=== PATIENT | female | born 1990 | race Two or more races ===

== ENCOUNTER 2024-10-05 00:50 | Emergency (ER) | payer MEDICAID, SELFPAY ==
[2024-10-05 00:51] VITALS: BMI 30.9
[2024-10-05 01:03] VITALS: BP 144/85; PULSE 74; RESP 16; TEMP 36.8; O2SAT 100
[2024-10-05] MEDS: ONDANSETRON ODT 4 MG TABRAP PO (01:18)
--- NOTE | 2024-10-05 01:19 | EDNOTE_ITS ---
ED Abdominal Pain RME/HPI General Chief Complaint: Abdominal Pain Stated complaint: BURNING SENSATION IN STOMACH Time seen by provider: 10/05/24 01:04 Arrival date/time: 10/05/24 00:50 34F with history of KIKI presents to ED with 1 year of intermittent burning epigastric pain and N/V. Tonight's flare is just worse than usual. Patient states she only recently started going to her PCP and has pending outpatient labs. Limitations: no limitations Related Data Previous Rx's ?Medication ?Instructions ?Recorded hydrocodone 5 mg-acetaminophen 325 1 tab PO Q8H PRN pa in #10 tabs 10/05/24 mg tablet ondansetron 4 mg disintegrating 4 mg PO Q6H PRN nausea and 10/05/24 tablet vomiting #10 tabs Allergies Allergy/AdvReac Type Severity Reaction Status Date / Time No Known Allergies Allergy Verified 10/05/24 00:53 Review of Systems Review of Systems Systems Reviewed: All systems reviewed, normal except as documented Constitutional Constitutional: Reports system reviewed and no additional complaints, except as documented, Denies fever(s) and Denies headache(s) ENT Ears, Nose, Mouth, and Throat: Denies disequilibrium and Denies headache(s) Cardiovascular Cardiovascular: Reports system reviewed and no additional complaints, except as documented, Denies chest pain and Denies dyspnea Respiratory Respiratory: Reports system reviewed and no additional complaints, except as documented, Denies cough and Denies dyspnea Gastrointestinal Gastrointestinal: Reports system reviewed and no additional complaints, except as documented, Reports as per HPI, Reports abdominal pain, Reports nausea and Reports vomiting Neurologic Neurologic: Reports system reviewed and no additional complaints, except as documented, Denies confusion, Denies disequilibrium and Denies headache(s) Psychiatric Psychiatric: Denies confusion Past Medical History Social History SMOKING STATUS: Never smoker ED Exam General Limitations: Present no limitations General appearance: Present alert and in no apparent distress Head Head exam: Present atraumatic Eye Eye exam: Present normal appearance, PERRL and EOMI ENT ENT exam: Present normal exam, normal oropharynx and mucous membranes moist Neck Neck exam: Present normal inspection, full ROM and trachea midline Chest Chest inspection: Present normal inspection and symmetric chest wall rise Respiratory Respiratory exam: Present normal lung sounds bilaterally Cardiovascular Cardiovascular exam: Present regular rate, normal rhythm and normal heart sounds Abdominal Exam Abdominal exam: Present soft and normal bowel sounds Extremities Exam Extremities exam: Present normal inspection and full ROM Back Exam Back exam: Present normal inspection and full ROM Neurological Exam Neurological exam: Present alert, oriented X3 and CN II-XII intact Psychiatric Psychiatric exam: Present normal affect and normal mood Skin Skin exam: Present warm, dry, intact and normal color Course Quality Measures none Orders Category Date Time Status CT Screening NOW Care 10/05/24 04:53 Completed Insert IV NOW Care 10/05/24 04:[address] abdomen pelvis w con Stat Exams 10/05/24 04:52 Completed US gall bladder Stat Exams 10/05/24 02:46 Completed CBC Stat Lab 10/05/24 03:06 Completed CMP [Comprehensive Metabolic Panel] Stat Lab 10/05/24 03:06 Completed CMP [Comprehensive Metabolic Panel] Stat Lab 10/05/24 06:00 Completed Drug Screen,Urine Stat Lab 10/05/24 03:54 Completed HCG Qualitative,Urine Stat Lab 10/05/24 03:54 Completed Lipase Stat Lab 10/05/24 03:06 Completed Famotidine [Pepcid] Med 10/05/24 01:12 Discontinued 40 mg PO X1 ONE HYDROcodone*/APAP 5/325 [Floyd 5/325] Med 10/05/24 04:02 Discontinued 1 tab PO X1 ONE Lidocaine 2% Viscous [Xylocaine 2% Viscous] Med 10/05/24 02:46 Discontinued 15 ml PO X1 ONE Ondansetron Odt [Zofran Odt] Med 10/05/24 01:12 Discontinued 4 mg PO X1 ONE mg Hyd/Al Hyd/Neri Susp [Maalox Susp] Med 10/05/24 01:12 Discontinued 30 ml PO X1 ONE Vital Signs Vital signs: Vital Signs Temperature 98.2 F 10/05/24 01:03 Pulse Rate 74 10/05/24 01:03 Respiratory Rate 16 10/05/24 01:03 Blood Pressure 144/85 H 10/05/24 01:03 Pulse Oximetry (%) 100 10/05/24 01:03 Oxygen Delivery Method Room Air 10/05/24 01:03 O2 at 100% on RA and WNLs Abdominal Pain MDM MDM Narrative MDM Narrative:: 34F with history of KIKI presents to ED with 1 year of intermittent burning epigastric pain and N/V. Tonight's flare is just worse than usual. Patient states she only recently started going to her PCP and has pending outpatient labs. Physical exam reveals RUQ/epigastric tenderness. Patient is afebrile, calm, and alert. Minimal leukocytosis. CMP unremarkable. Lipase normal. US reveals gallstones with possible cholecystitis; CBD mildly dilated. Care signed out to Jyoti [employer] pending CT, repeat CMP and dispo. Patient eventually discharged. Patient data External records reviewed:: [facility] previous records Clinical information provided by:: patient Social determinants that could affect healthcare access:: none Patient has the following chronic illnesses:: KIKI How is presenting disease/condition affected by chronic disease/condition?: uneffected by Evaluation data The following diagnostics were reviewed and interpreted by me:: lab results and radiology exam(s) Lab and/or radiology exams considered but not ordered:: ordered Interpretation Summary: above Medications / Prescriptions Medications or Prescriptions considered but not ordered:: ordered Medication administrations:: Medication Administration History Discontinued Medications Hydrocodone Bitart/Acetaminophen (Hydrocodone/Apap 5/325 Tablet) 1 tab PO X1 ONE Stop: 10/05/24 04:03 Last Admin: 10/05/24 04:13 Dose: 1 tab Documented By: RODY Al Hydrox/Mg Hydrox/Simethicone (Mg Hyd/Al Hyd/Neri (Maalox Reg) Susp 30 Ml Udc) 30 ml PO X1 ONE Stop: 10/05/24 01:13 Last Admin: 10/05/24 02:02 Dose: 30 ml Documented By: MERCY Famotidine (Famotidine 20 Mg Tablet) 40 mg PO X1 ONE Stop: 10/05/24 01:13 Last Admin: 10/05/24 02:02 Dose: 40 mg Documented By: MERCY Lidocaine HCl (Lidocaine Viscous 2% 15 Ml Udc) 15 ml PO X1 ONE Stop: 10/05/24 02:47 Last Admin: 10/05/24 03:08 Dose: 15 ml Documented By: RODY Ondansetron HCl (Ondansetron Odt 4 Mg Tabrap) 4 mg PO X1 ONE; Protocol Stop: 10/05/24 01:13 Last Admin: 10/05/24 01:18 Dose: 4 mg Documented By: above Consultations Consultation(s) initiated? (list below): No Diagnosis Differential diagnosis abdominal pain: abdominal pain, acute appendicitis, calculus of kidney, constipation, diverticulitis, endometriosis, gastroenteritis, pancreatitis, small bowel obstruction and other (gastritis, biliary disease, gallstones) Most likely diagnosis given after review of the tests above:: ab pain and gall stones Admission Indicated Admission indicated?: not indicated Admission Request Was there a request for admission?: No Disposition Plan Disposition Plan: Discharge Discharge Attestation Discharge Attestation: The patient and all family members were given an opportunity to ask questions and understood the discharge instructions. Discharge instructions specifically effects, indications for sooner follow up or return to the emergency department, and the expected course of current diagnosis. Patient condition: Stable Discharge Plan Plan Patient Disposition: HOME (Self Care) Patient condition on transfer: Stable Prescriptions/Referrals Prescriptions/Med Rec: New ondansetron 4 mg tablet,disintegrating 4 mg PO Q6H PRN (Reason: nausea and vomiting) Qty: 10 0RF hydrocodone-acetaminophen 5-325 mg tablet 1 tab PO Q8H MDD 3 PRN (Reason: pain) Qty: 10 0RF Referrals: No Primary/Family,Physician [Primary Care Provider] - In 1 week Problem List Clinical Impression: Abdominal pain, Gallstones Patient/Caregiver Discharge Instructions Discharge Activity: activity as tolerated Education Materials: Abdominal Pain, ED Gallstones with Biliary Colic Additional Instructions: Avoid fatty foods. Eat a bland diet. Get rest and drink plenty of fluids. Gallbladder wall appears mildly thickened On CT scan. If symptoms change or worsen come back to the emergency room. Please make sure to follow-up with primary provider in 1 to 2 days. Print Language: Romanian Stand Alone Forms: Karena Award Info., Patient Portal Info Letter PATTIE/YULIANA Supervising Physician PATTIE/YULIANA Supervising Physician: [email or web address]
[2024-10-05] MEDS: MG HYD/AL HYD/SIME (Maalox Reg) SUSP 30 ML UDC PO (02:02)
[2024-10-05] MEDS: FAMOTIDINE 20 MG TABLET 40 MG PO (02:02)
--- NOTE | 2024-10-05 02:46 | XR_ITS ---
Examination: Abdomen sonogram, Limited Date and time of exam: October 05, 2024, 0331 hours INDICATIONS: Right upper abdominal pain vomiting today Technique: Real-time villalpando scale transabdominal sonographic images of the upper abdomen obtained. Findings: Multiple gallstones Gallbladder wall 0.37 cm Common bile duct 0.53 cm no stones Pancreas obscured by bowel gas Liver 14.9 cm no liver lesions Normal hepatopedal portal venous flow Patent IVC IMPRESSION: Cholelithiasis, technologist measures gallbladder wall 0.37 cm, I measure gallbladder wall up to 6 mm, consider HIDA scan or MRCP follow-up to exclude cholecystitis as clinically warranted
[2024-10-05] MEDS: LIDOCAINE VISCOUS 2% 15 ML UDC PO (03:08)
[2024-10-05 03:15] LABS: Basophils # (Auto) 0.0 Thou/mm3 (0.0-0.2); Basophils % (Auto) 0 % (0-2.5); Eosinophils # (Auto) 0.0 Thou/mm3 (0.0-0.5); Eosinophils % (Auto) 0 % (0-10); Hematocrit 31.6 % (36.0-46.0); Hemoglobin 10.5 g/dL (12.0-16.0); Immature Granulocytes Auto 0.03 Thou/mm3 (0.00-0.00); Lymphocytes # (Auto) 1.4 Thou/mm3 (1.0-4.8); Lymphocytes % (Auto) 12 % (10-50); Mean Corpuscular HGB Conc 33.2 g/dl (31.0-37.0); Mean Corpuscular Hemoglobin 25.7 pg (25.0-35.0); Mean Corpuscular Volume 78 fL (80-100); Monocytes # (Auto) 0.4 Thou/mm3 (0.0-0.8); Monocytes % (Auto) 4 % (0-12); Neutrophils # (Auto) 10.0 Thou/mm3 (1.8-7.7); Neutrophils % (Auto) 84 % (37-80); Nucleated Red Blood Cell # 0.00 Thou/mm3 (0.00-0.00); Nucleated Red Blood Cell % 0 /100 WBC (0); Platelet Count 336 Thou/mm3 (140-440); RDW Standard Deviation 41.1 fL (36.4-46.3); Red Blood Count 4.08 Miln/mm3 (4.00-5.20); White Blood Count 11.9 Thou/mm3 (3.6-11.0)
[2024-10-05 03:32] LABS: Alanine Aminotransferase 12 U/L (10-49); Albumin, Serum 4.5 gm/dL (3.5-5.0); Albumin/Globulin Ratio 1.5 (1.2-2.2); Alkaline Phosphatase 93 U/L (46-116); Anion Gap 8 (7-16); Aspartate Amino Transferase 14 U/L (0-34); BUN/Creatinine Ratio 14 Ratio (12-20); Bilirubin,Total 0.6 mg/dL (0.3-1.2); Blood Urea Nitrogen 10 mg/dL (9-23); Calcium 9.2 mg/dL (8.3-10.6); Calcium (Corrected) 9.2 mg/dL (8.5-10.1); Carbon Dioxide 25.6 mMol/L (20.0-31.0); Chloride 104 mMol/L (98-107); Creatinine (Component) 0.7 mg/dL (0.6-1.3); Estimated Creatinine Clearance 119.3 mL/min (>60); Globulin 3.1 gm/dL (2.3-3.5); Glucose 131 mg/dL (74-106); Lipase 28 U/L (12-53); Osmolality,Calculated 276 (275-295); Potassium 3.5 mMol/L (3.4-5.1); Sodium 138 mMol/L (136-145); Total Protein 7.6 gm/dL (5.7-8.2); eGFR > 60 See Note
[2024-10-05 04:02] VITALS: BP 147/77; PULSE 63; RESP 18; TEMP 36.9; O2SAT 100
[2024-10-05 04:10] LABS: HCG Qualitative,Urine Negative
[2024-10-05] MEDS: HYDROcodone/APAP 5/325 TABLET 1 TAB PO (04:13)
[2024-10-05 04:16] LABS: Amphetamine/Methamp Scrn,U Negative (Negative); Barbiturate Screen,Urine Negative (Negative); Benzodiazepines Screen,Urine Negative (Negative); Benzoylecgonine Screen, Ur Negative (Negative); Fentanyl Screen,Urine Negative (Negative); Opiate Screen,Urine Negative (Negative); THC Screen,Urine Negative (Negative)
--- NOTE | 2024-10-05 04:52 | XR_ITS ---
Examination: CT abdomen with intravenous contrast CT pelvis with intravenous contrast 2-D coronal reconstructions 2-D sagittal reconstructions Date and time of exam:October 05, 2024, 0615 hours INDICATIONS: Onset epigastric pain today. CTDI: vol (mGy) 11. DLP: (mGycm) 632. Technique: Multiple axial sections of the abdomen and pelvis have been obtained. 64 slice high-resolution scanner used. 3 mm axial sections have been obtained, post intravenous injection of 60 cc Isovue 370. 2-D sagittal, coronal reconstructions obtained. Low dose protocols were performed. One or more of the following dose reduction techniques were used; automated exposure control, adjustment of the mA and/or KV according to patient size, use of iterative reconstruction technique. Findings: No focal liver or splenic lesions Cholelithiasis Gallbladder wall appears mildly thickened No pancreatic or adrenal mass No renal or ureteral calculi, no hydronephrosis Aorta normal size No bowel obstruction Normal appendix, coronal image 50 No diverticulitis No pelvic mass Urinary bladder intact IMPRESSION: Recommend repeating the gallbladder study with a different technologist this morning to exclude calculus cholecystitis
[2024-10-05 06:00] VITALS: BP 116/71; PULSE 61; RESP 18; TEMP 36.6; O2SAT 100
[2024-10-05 06:29] LABS: Alanine Aminotransferase 12 U/L (10-49); Albumin, Serum 4.5 gm/dL (3.5-5.0); Albumin/Globulin Ratio 1.5 (1.2-2.2); Alkaline Phosphatase 89 U/L (46-116); Anion Gap 7 (7-16); Aspartate Amino Transferase 14 U/L (0-34); BUN/Creatinine Ratio 11 Ratio (12-20); Bilirubin,Total 0.6 mg/dL (0.3-1.2); Blood Urea Nitrogen 8 mg/dL (9-23); Calcium 9.3 mg/dL (8.3-10.6); Calcium (Corrected) 9.3 mg/dL (8.5-10.1); Carbon Dioxide 25.6 mMol/L (20.0-31.0); Chloride 106 mMol/L (98-107); Creatinine (Component) 0.7 mg/dL (0.6-1.3); Estimated Creatinine Clearance 119.3 mL/min (>60); Globulin 3.1 gm/dL (2.3-3.5); Glucose 117 mg/dL (74-106); Osmolality,Calculated 276 (275-295); Potassium 3.9 mMol/L (3.4-5.1); Sodium 139 mMol/L (136-145); Total Protein 7.6 gm/dL (5.7-8.2); eGFR > 60 See Note
[2024-10-05 08:46] VITALS: BP 111/71; PULSE 67; RESP 18; TEMP 37; O2SAT 97
--- NOTE | 2024-10-05 11:59 | EDNOTE_ITS ---
Emergency Room Addendum Addendum Narrative: I took over care for james Adams awaiting for ct scan of abdomen and pelvis to be completed. CT abdomen and pelvis results: Findings: No focal liver or splenic lesions Cholelithiasis Gallbladder wall appears mildly thickened No pancreatic or adrenal mass No renal or ureteral calculi, no hydronephrosis Aorta normal size No bowel obstruction Normal appendix, coronal image 50 No diverticulitis No pelvic mass Urinary bladder intact IMPRESSION: Recommend repeating the gallbladder study with a different technologist this morning to exclude calculus cholecystitis I assessed patient at bedside. Patient eating Jell-O and drinking. Patient denies pain at this time. VITAL SIGNS: Reviewed. GENERAL APPEARANCE: Alert and interactive, follows commands, no acute distress HEAD AND FACE: Non-traumatic. ENT: PERRL, conjuctiva pink and clear, eyelid no trauma, Mucous membrane moist. LUNGS: breathing even and unlabored HEART: Regular rate, cap refill less than 2 seconds ABDOMEN: Soft, nondistended, no guarding, nontender to light palpation. NEUROLOGICAL: Gross motor function intact sensory function intact, Appropriate for age. SKIN: Color pink, dry I went over the CT results with patient. I let her know that radiologist hugh mmends a repeat ultrasound. Patient states she feels better. Patient does not want to wait for another ultrasound. She reports that she is already feeling better she is not having any pain and she would like to go home. I spoke to patient at length that if her symptoms change or worsen to make sure she comes back to the emergency room. patient already being worked up with her primary doctor. I told her to make an appointment and follow-up with them. Patient verbalized understanding.
[2024-10-05 12:25] VITALS: BP 108/72; PULSE 60; RESP 17; TEMP 36.9; O2SAT 98
== END 2024-10-05 13:01 | disposition home or self-care (01) ==
PROVIDERS: Physician Assistant; Emergency Provider Family Medicine
DX: K80.20 Calculus of gallbladder without cholecystitis without obstruction (principal)
CPT/HCPCS: 36415; 74177; 76705; 80053; 80307; 81025; 83690; 85025; 99285; A4649; J3490; Q0162; Q9967; A9270